=== PATIENT | female | born 1955 | race Caucasian/White ===

== ENCOUNTER 2017-02-05 16:39 | Observation (INO) | payer BC, MEDICAID ==
[2017-02-05] MEDS ORDERED: Sodium Chloride 0.9% 1,000 ML IV ONE (17:09)
[2017-02-05] MEDS ORDERED: Ondansetron 4 MG/2 ML SDV IVPUSH ONE (17:09)
--- NOTE | 2017-02-05 17:14 | EDM.PDOC ---
ED HPI GENERAL MEDICAL PROBLEM - General Chief Complaint: Gastrointestinal Problem Stated Complaint: VOMITING Time Seen by Provider: 02/05/17 16:55 Source of Information: Reports: Patient, Family History Limitations: Reports: No Limitations - History of Present Illness INITIAL COMMENTS - FREE TEXT/NARRATIVE: 62-year-old female undergoing chemotherapy for a cerebral tumor, received the medication on Sunday and today is very ill, nausea and vomiting all day long and unresponsive to the antiemetic medications. She has a slight headache but no abdominal pain, no shortness of breath or fever. She had emesis so many times and so violently that she has developed facial petechiae around her eyes. She also tends to get low platelets from the chemotherapy and it has not been checked in the last 3 weeks. Onset: Sudden (Nausea and vomiting started rather suddenly after breakfast this morning) Severity: Moderate Associated Symptoms: Reports: Nausea/Vomiting. 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 below) (Has tried oral Compazine and oral Zofran) Head Pain Score (Numeric/FACES): 4 - Related Data Allergies Allergy/AdvReac Type Severity Reaction Status Date / Time chlorpheniramine Allergy Cannot Verified 02/05/17 18:25 Remember erythromycin base Allergy Cannot Verified 02/05/17 18:25 [Erythromycin Base] Remember Penicillins Allergy Cannot Verified 02/05/17 18:25 Remember Home Meds: Home Meds Calcium Carb/Vitamin D3/Vit K1 [Viactiv Soft Chew] 1 tab PO BID 06/14/15 [ History] Multivitamins 1 tab PO DAILY 06/14/15 [History] Ondansetron [Zofran] 8 mg PO Q8H PRN 06/14/15 [History] Prochlorperazine Maleate [Compazine] 10 mg PO Q6H PRN 06/14/15 [History] *Avastin 02/05/17 [History] *Naproxen 1 tab PO BID 02/05/17 [History] Acetaminophen/Diphenhydramine [Tylenol Pm Ex-Strength Caplet] 1 tab PO BEDTIME 02/05/17 [History] Past Medical History HEENT History: Reports: Impaired Vision 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: , Prolapsed Uterus Musculoskeletal History: Reports: Fracture Other Musculoskeletal History: left shoulder torn rotator cuff Neurological History: Reports: Seizure, Other (See Below) Other Neuro History: brain tumor, "mini seizures?" tingling drooping face - effects from tumor Hematologic History: Reports: Other (See Below) Other Hematologic History: low platlet count due to chemo Immunologic History: Reports: Immunosuppression Oncologic (Cancer) History: Reports: Brain - Infectious Disease History Infectious Disease History: Reports: Chicken Pox - Past Surgical History GI Surgical History: Reports: Colonoscopy Female Surgical History: Reports: Hysterectomy Neurological Surgical History: Reports: Other (See Below) Musculoskeletal Surgical History: Reports: Other (See Below) Social & Family History - Tobacco Use Smoking Status *Q: Unknown Ever Smoked Second Hand Smoke Exposure: No - Recreational Drug Use Recreational Drug Use: No ED ROS GENERAL - Review of Systems Review Of Systems: See Below Constitutional: Reports: Malaise, Weakness. Denies: Fever, Chills HEENT: Reports: Other (Periorbital petechia). Denies: Eye Pain Respiratory: Denies: Shortness of Breath Cardiovascular: Denies: Chest Pain GI/Abdominal: Reports: Nausea, Vomiting. Denies: Abdominal Pain, Diarrhea : Reports: Other (History of a high creatinine, no urinary physical symptoms) Skin: Reports: Pallor, Other (Periorbital petechia) Neurological: Reports: Headache Psychiatric: Reports: No Symptoms ED EXAM, GI/ABD - Physical Exam Exam: See Below Exam Limited By: No Limitations General Appearance: Alert, No Apparent Distress (Patient looks uncomfortable but not in any acute distress) Eyes: Bilateral: Periorbital Swelling (Slight periorbital edema and petechiae are present) Head: Facial Swelling (A small amount of puffiness is present) Respiratory/Chest: No Respiratory Distress Cardiovascular: Regular Rate, Rhythm GI/Abdominal Exam: Normal Bowel Sounds, Soft, Other (No focal tenderness or guarding is present) Neurological: Alert, Oriented Psychiatric: Normal Affect, Normal Mood Course - Vital Signs Last Recorded V/S: Last Vital Signs Temp 98.2 F 02/06/17 07:00 Pulse 75 02/06/17 07:00 Resp 18 02/06/17 07:00 BP 129/64 02/06/17 07:00 Pulse Ox 98 02/06/17 07:00 - Orders/Labs/Meds Labs: Laboratory Tests 02/05/17 02/05/17 Range/Units 17:22 17:22 WBC 7.8 (4.5-11.0) K/uL RBC 3.80 (3.30-5.50) M/uL Hgb 12.8 (12.0-15.0) g/dL Hct 36.7 (36.0-48.0) % MCV 97 (80-98) fL MCH 34 H (27-31) pg MCHC 35 (32-36) % Plt Count 106 L (150-400) K/uL Neut % (Auto) 86 H (36-66) % Lymph % (Auto) 7 L (24-44) % Winn % (Auto) 7 H (2-6) % Eos % (Auto) 0 L (2-4) % Baso % (Auto) 0 (0-1) % Sodium 135 L (140-148) mmol/L Potassium 4.8 (3.6-5.2) mmol/L Chloride 100 (100-108) mmol/L Carbon Dioxide 27 (21-32) mmol/L Anion Gap 12.8 (5.0-14.0) mmol/L BUN 19 H (7-18) mg/dL Creatinine 0.8 (0.6-1.0) mg/dL Est Cr Clr Drug Dosing 74.24 mL/min Estimated GFR (MDRD) > 60 (>60) Glucose 122 H (74-106) mg/dL Calcium 9.1 (8.5-10.1) mg/dL Total Bilirubin 0.6 (0.2-1.0) mg/dL AST 42 H D (15-37) U/L ALT 48 (12-78) U/L Alkaline Phosphatase 58 (46-116) U/L Total Protein 6.1 L (6.4-8.2) g/dL Albumin 3.8 (3.4-5.0) g/dL Globulin 2.3 (2.3-3.5) g/dL Albumin/Globulin Ratio 1.7 (1.2-2.2) Amylase 73 (25-115) U/L Lipase 97 (73-393) U/L Meds: Medications Discontinued Medications Generic Name Dose Route Start Last Admin Trade Name Freq PRN Reason Stop Dose Admin Acetaminophen 650 mg 02/05/17 19:07 Tylenol PO Q4H PRN Pain (Mild 1-3)/fever Acetaminophen 500 mg 02/05/17 21:00 02/05/17 20:42 Tylenol Extra Strength PO 500 mg BEDTIME EMILY Administration Diphenhydramine HCl 25 mg 02/05/17 21:00 02/05/17 20:42 Benadryl PO 25 mg BEDTIME EMILY Administration Sodium Chloride 1,000 mls @ 999 mls/hr 02/05/17 17:09 02/05/17 17:30 Normal Saline IV 02/05/17 18:09 999 mls/hr ONETIME ONE Administration Sodium Chloride 1,000 mls @ 100 mls/hr 02/05/17 18:30 02/06/17 05:18 Normal Saline IV 100 mls/hr ASDIRECTED EMILY Administration Lorazepam 0.5 mg 02/05/17 19:07 02/05/17 19:26 Ativan IVPUSH 0.5 mg Q4H PRN Administration Nausea/Vomiting Ondansetron HCl 4 mg 02/05/17 17:09 02/05/17 17:30 Zofran IVPUSH 02/05/17 17:10 4 mg ONETIME ONE Administration Ondansetron HCl 4 mg 02/05/17 19:07 Zofran Odt PO Q6H PRN Nausea able to take PO Ondansetron HCl 4 mg 02/05/17 19:07 Zofran IV Q6H PRN Nausea/Vomiting Apap 500mg/ 0 each 02/06/17 21:00 Diphenhydramine 25mg PO (Ptom) BEDTIME EMILY Prochlorperazine Maleate 10 mg 02/05/17 19:07 Compazine PO Q6H PRN Nausea/Vomiting - Re-Assessments/Exams Free Text/Narrative Re-Assessment/Exam: 02/05/17 17:14 An IV was started and 1000 mL bolus of normal saline was given. 4 mg of IV Zofran was given as well. CBC, CMP, amylase and lipase were obtained. 02/05/17 17:53 Labs returned very reassuring. Platelets were at 106,000, white count, hemoglobin, electrolytes and renal function were also reassuring. Amylase and lipase were normal. Dr. Tyler, the hospitalist service was asked to consult to admit patient for symptom control and hydration. Departure - Departure Time of Disposition: 18:55 Disposition: Admitted As Inpatient 64 Condition: Fair Clinical Impression: Vomiting - Discharge Information
--- NOTE | 2017-02-05 18:39 | PCM.HP ---
H&P History of Present Illness - General Date of Service: 02/05/17 Admit Problem/Dx: Admission Diagnosis/Problem Admission Diagnosis/Problem Nausea and vomiting Source of Information: Patient, Family, Provider History Limitations: Reports: No Limitations - History of Present Illness Initial Comments - Free Text/Narative: Elisabeth presents to the emergency room with 12 hours of nausea and vomiting. She last received chemotherapy on Sunday, 3 days ago. She felt well other than some fatigue for the first couple of days before developing nausea and vomiting this morning. She has had multiple episodes of vomiting and these episodes have been violent. She has been unable to keep anything down during the course of the day. When she takes any liquid she vomits it right back up. She has not had any fevers and has not had any abdominal pain. She reports fatigue that is worse than baseline over the past few days. She has not had any sick contacts. She has not consumed any foods outside of her usual diet. No complaints of shortness of breath. She did note some petechiae on her cheeks after the violent episodes of vomiting today. Workup in the emergency room has been reassuring with only mild thrombocytopenia noted on labs. She will be admitted for hydration and additional symptom management. Head Pain Score (Numeric/FACES): 4 - Related Data Allergies/Adverse Reactions: Allergies Allergy/AdvReac Type Severity Reaction Status Date / Time chlorpheniramine Allergy Cannot Verified 02/05/17 18:25 Remember diphenhydramine Allergy Cannot Verified 02/05/17 18:25 Remember erythromycin base Allergy Cannot Verified 02/05/17 18:25 [Erythromycin Base] Remember Penicillins Allergy Cannot Verified 02/05/17 18:25 Remember Home Medications: Home Meds Calcium Carb/Vitamin D3/Vit K1 [Viactiv Soft Chew Tablet] 1 tab PO BID 06/14/15 [History] Memantine [Namenda] 10 mg PO BID 06/14/15 [History] Multivitamins 1 tab PO DAILY 06/14/15 [History] Ondansetron [Zofran] 8 mg PO Q8H PRN 06/14/15 [History] Prochlorperazine Maleate [Compazine] 10 mg PO Q6H PRN 06/14/15 [History] Sulfamethoxazole/Trimethoprim [Bactrim 400-80 MG] 1 tab PO DAILY 06/14/15 [ History] Temozolomide [Temodar] 280 mg PO BEDTIME 06/14/15 [History] Past Medical History HEENT History: Reports: Impaired Vision 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: , Prolapsed Uterus Musculoskeletal History: Reports: Fracture Other Musculoskeletal History: left shoulder torn rotator cuff Neurological History: Reports: Seizure, Other (See Below) Other Neuro History: brain tumor, "mini seizures?" tingling drooping face - effects from tumor Hematologic History: Reports: Other (See Below) Other Hematologic History: low platlet count due to chemo Immunologic History: Reports: Immunosuppression Oncologic (Cancer) History: Reports: Brain - Infectious Disease History Infectious Disease History: Reports: Chicken Pox - Past Surgical History GI Surgical History: Reports: Colonoscopy Female Surgical History: Reports: Hysterectomy Neurological Surgical History: Reports: Other (See Below) Musculoskeletal Surgical History: Reports: Other (See Below) Social & Family History - Tobacco Use Smoking Status *Q: Unknown Ever Smoked Second Hand Smoke Exposure: No - Recreational Drug Use Recreational Drug Use: No H&P Review of Systems - Review of Systems: Review Of Systems: See Below Free Text/Narrative: A complete 12 point review of systems was obtained. Pertinent positives and negatives are noted in the history of present illness. All other systems were reviewed and were negative except as noted. Exam - Exam Exam: See Below - Vital Signs Vital Signs: Last Vital Signs Temp 35.7 C 02/05/17 16:52 Pulse 85 02/05/17 16:52 Resp 16 02/05/17 16:52 BP 171/76 H 02/05/17 17:17 Pulse Ox 96 02/05/17 17:17 Weight: 66.4 kg - Exam Quality Assessment: No: Supplemental Oxygen General: Alert, Oriented, Cooperative. No: Mild Distress HEENT: Conjunctiva Clear. No: Mucosa Moist & [place] (dry), Scleral Icterus Neck: Supple, Trachea Midline. No: Lymphadenopathy Lungs: Clear to Auscultation, Normal Respiratory Effort Cardiovascular: Regular Rate, Regular Rhythm GI/Abdominal Exam: Normal Bowel Sounds, Soft, Non-Tender, No Distention Extremities: No Pedal Edema. No: Increased Warmth Skin: Warm, Dry, Petechia (cheeks and around eyes) Neuro Extensive - Mental Status: Alert, Oriented x3, Nl Response to Commands Neuro Extensive - Motor, Sensory, Reflexes: CN II-XII Intact. No: Dysarthria, Abnormal Motor Psychiatric: Alert, Normal Affect - Patient Data Lab Results Last 24 hrs: Laboratory Results - last 24 hr 02/05/17 02/05/17 Range/Units 17:22 17:22 WBC 7.8 (4.5-11.0) K/uL RBC 3.80 (3.30-5.50) M/uL Hgb 12.8 (12.0-15.0) g/dL Hct 36.7 (36.0-48.0) % MCV 97 (80-98) fL MCH 34 H (27-31) pg MCHC 35 (32-36) % Plt Count 106 L (150-400) K/uL Neut % (Auto) 86 H (36-66) % Lymph % (Auto) 7 L (24-44) % Morton % (Auto) 7 H (2-6) % Eos % (Auto) 0 L (2-4) % Baso % (Auto) 0 (0-1) % Sodium 135 L (140-148) mmol/L Potassium 4.8 (3.6-5.2) mmol/L Chloride 100 (100-108) mmol/L Carbon Dioxide 27 (21-32) mmol/L Anion Gap 12.8 (5.0-14.0) mmol/L BUN 19 H (7-18) mg/dL Creatinine 0.8 (0.6-1.0) mg/dL Est Cr Clr Drug Dosing 74.24 mL/min Estimated GFR (MDRD) > 60 (>60) Glucose 122 H (74-106) mg/dL Calcium 9.1 (8.5-10.1) mg/dL Total Bilirubin 0.6 (0.2-1.0) mg/dL AST 42 H D (15-37) U/L ALT 48 (12-78) U/L Alkaline Phosphatase 58 (46-116) U/L Total Protein 6.1 L (6.4-8.2) g/dL Albumin 3.8 (3.4-5.0) g/dL Globulin 2.3 (2.3-3.5) g/dL Albumin/Globulin Ratio 1.7 (1.2-2.2) Amylase 73 (25-115) U/L Lipase 97 (73-393) U/L Result Diagrams: 02/05/17 17:22 02/05/17 17:22 *Q Meaningful Use (ADM) - VTE *Q VTE Criteria *Q: - VTE Risk Assess *Q Each Risk Factor Represents 1 Point: None Total Score 1 Point Risk Factors: 0 Each Risk Factor Represents 2 Points: Age 60 - 74 Years, Malignancy (present or previous) Total Score 2 Point Risk Factors: 4 Each Risk Factor Represents 3 Points: None Total Score 3 Point Risk Factors: 0 Each Risk Factor Represents 5 Points: None Total Score 5 Point Risk Factors: 0 Venous Thromboembolism Risk Factor Score *Q: 4 - Stroke *Q Stroke Criteria *Q: - AMI *Q AMI Criteria *Q: - Problem List (1) Nausea and vomiting SNOMED Code(s): 14084548 ICD Code: R11.2 - NAUSEA WITH VOMITING, UNSPECIFIED Status: Acute Current Visit: Yes Qualifiers: Vomiting type: unspecified Vomiting Intractability: non-intractable Qualified Code(s): R11.2 - Nausea with vomiting, unspecified (2) Glioblastoma SNOMED Code(s): 09224798670008 ICD Code: C71.9 - MALIGNANT NEOPLASM OF BRAIN, UNSPECIFIED Status: Acute Current Visit: Yes Problem List Initiated/Reviewed/Updated: Yes Orders Last 24hrs: Active Orders 24 hr Category Date Time Status Patient Status Manage Transfer [TRANSFER] Routine ADT 02/05/17 18:19 Ordered Sodium Chloride 0.9% [Normal Saline] 1,000 ml Med 02/05/17 18:30 Active IV ASDIRECTED Resuscitation Status Routine Resus Stat 02/05/17 18:20 Ordered Medication Orders Sodium Chloride (Normal Saline) 1,000 mls @ 100 mls/hr IV ASDIRECTED EMILY Assessment/Plan Comment:: ASSESSMENT AND PLAN - Nausea vomiting - likely side effect from recent chemotherapy. Had similar but not quite as intense symptoms after last round of chemotherapy 2 weeks ago. No fever and no sick contacts. Labs reassuring but obvious evidence for dehydration on examination. Unable to keep anything down and not safe for outpatient management. -IV fluids overnight -Symptomatic management as needed -Liquids as tolerated Glioblastoma - currently receiving IV chemotherapy every 2 weeks. Has seemed to be more intolerant each of the last 2 rounds. -Outpatient follow-up Maintenance issues - - DVT prophylaxis - ambulatory - GI prophylaxis - not indicated - Nutrition - full liquids as tolerated - Gabriel catheter - not indicated CODE STATUS - DNR/DNI Admission justification - patient will be referred to observation status for hydration and symptomatic management Disposition - anticipate discharge to home tomorrow Primary care physician - Mustapha Tyler M.D.
[2017-02-05] MEDS ORDERED: Ondansetron 4 MG Tab.DIS PO PRN (19:07)
[2017-02-05] MEDS ORDERED: Ondansetron 4 MG/2 ML SDV IV PRN (19:07)
[2017-02-05] MEDS ORDERED: LORazepam 2 MG/ML SDV IVPUSH PRN (19:07)
[2017-02-05] MEDS ORDERED: PROCHLORPERAZINE 10 MG PO PRN (19:07)
[2017-02-05] MEDS ORDERED: Acetaminophen 325 MG Tab PO PRN (19:07)
[2017-02-05] MEDS: Sodium Chloride 0.9% 1,000 ML IV SCH (19:26)
[2017-02-05] MEDS ORDERED: diphenhydrAMINE 25 MG Cap PO SCH (21:00)
[2017-02-05] MEDS ORDERED: Acetaminophen 500 MG Tab PO SCH (21:00)
[2017-02-06] MEDS: Sodium Chloride 0.9% 1,000 ML IV SCH (05:18)
[2017-02-06 07:34] VITALS: BP 129/64
--- NOTE | 2017-02-06 10:36 | PCM.DCSUM1 ---
Discharge Summary - Hospital Course Brief History: 62-year-old female with cerebral glioblastoma on chemotherapy who presented with intractable nausea and vomiting and was admitted for hydration and symptom management. - Discharge Data Discharge Date: 02/06/17 Discharge Disposition: Home, Self-Care 01 Condition: Good - Discharge Diagnosis/Problem(s) (1) Nausea and vomiting SNOMED Code(s): 78786580 ICD Code: R11.2 - NAUSEA WITH VOMITING, UNSPECIFIED Status: Acute Qualifiers: Vomiting type: unspecified Vomiting Intractability: non-intractable Qualified Code(s): R11.2 - Nausea with vomiting, unspecified (2) Glioblastoma SNOMED Code(s): 99754563440702 ICD Code: C71.9 - MALIGNANT NEOPLASM OF BRAIN, UNSPECIFIED Status: Chronic - Patient Summary/Data Hospital Course: Elisabeth presented to the emergency room with nausea and vomiting that were intractable at home. Workup in the emergency room reassuring but given her dehydration and severity of symptoms she was admitted for additional management. Overnight her nausea essentially resolved and there were no episodes of vomiting. She feels much better this morning after hydration overnight. Has been no abdominal pain and she has not had any fevers. She tolerated breakfast well with no nausea or vomiting. She feels safe to go home at this point. We did review the use of anti-nausea medications including Compazine and ondansetron. She has some of both of these available at home. Hopefully she will not need them after hydration and symptom management during this hospital stay. She will be following up with her oncology providers as scheduled. - Patient Instructions Diet: Regular Diet as Tolerated Activity: As Tolerated Showering/Bathing: May Shower Notify Provider of: Fever, Increased Pain, Nausea and/or Vomiting Other/Special Instructions: 1. You were in the hospital for management of nausea and vomiting that resulted from your recent chemotherapy treatment. Your symptoms have improved with IV fluid hydration and medications to help manage the nausea. If you have difficulty with nausea at home you can alternate your nausea medications including Zofran and Compazine. It is safe to take these medications every 6 hours as needed and you may overlap every 3 hours if urine nausea is severe (i.e. take Zofran, weight 3 hours and then take Compazine and if you still have nausea you can take Zofran again after 3 more hours - 6 hours after the first dose). 2. Please follow-up as scheduled with the oncology service. 3. Seek medical attention if you develop fever greater than 101, you have persistent vomiting that leads to dehydration or if you develop severe abdominal pain or diarrhea. - Discharge Plan Home Medications: Home Meds Calcium Carb/Vitamin D3/Vit K1 [Viactiv Soft Chew] 1 tab PO BID 06/14/15 [ History] Multivitamins 1 tab PO DAILY 06/14/15 [History] Ondansetron [Zofran] 8 mg PO Q8H PRN 06/14/15 [History] Prochlorperazine Maleate [Compazine] 10 mg PO Q6H PRN 06/14/15 [History] *Avastin 02/05/17 [History] *Naproxen 1 tab PO BID 02/05/17 [History] Acetaminophen/Diphenhydramine [Tylenol Pm Ex-Strength Caplet] 1 tab PO BEDTIME 02/05/17 [History] Patient Handouts: Nausea, Adult Referrals: Mustapha Sánchez MD [Primary Care Provider] - (follow-up as needed after the hospital stay) - Discharge Summary/Plan Comment DC Time >30 min.: No (25) - Patient Data Vitals - Most Recent: Last Vital Signs Temp 36.8 C 02/06/17 07:00 Pulse 75 02/06/17 07:00 Resp 18 02/06/17 07:00 BP 129/64 02/06/17 07:00 Pulse Ox 98 02/06/17 07:00 Weight - Most Recent: 66.4 kg I&O - Last 24 hours: Intake & Output 02/05/17 02/06/17 02/06/17 22:59 06:59 14:59 Intake Total 992 360 Output Total 300 1200 Balance -300 -208 360 Med Orders - Current: Current Medications Acetaminophen (Tylenol) 650 mg PO Q4H PRN PRN Reason: Pain (Mild 1-3)/fever Sodium Chloride (Normal Saline) 1,000 mls @ 100 mls/hr IV ASDIRECTED EMILY Last Admin: 02/06/17 05:18 Dose: 100 mls/hr Lorazepam (Ativan) 0.5 mg IVPUSH Q4H PRN PRN Reason: Nausea/Vomiting Last Admin: 02/05/17 19:26 Dose: 0.5 mg Ondansetron HCl (Zofran Odt) 4 mg PO Q6H PRN PRN Reason: Nausea able to take PO Ondansetron HCl (Zofran) 4 mg IV Q6H PRN PRN Reason: Nausea/Vomiting Apap 500mg/Diphenhydramine 25mg (Ptom) 0 each PO BEDTIME EMILY Prochlorperazine Maleate (Compazine) 10 mg PO Q6H PRN PRN Reason: Nausea/Vomiting Discontinued Medications Acetaminophen (Tylenol Extra Strength) 500 mg PO BEDTIME [facility] Last Admin: 02/05/17 20:42 Dose: 500 mg Diphenhydramine HCl (Benadryl) 25 mg PO BEDTIME EMLIY Last Admin: 02/05/17 20:42 Dose: 25 mg Sodium Chloride (Normal Saline) 1,000 mls @ 999 mls/hr IV ONETIME ONE Stop: 02/05/17 18:09 Last Admin: 02/05/17 17:30 Dose: 999 mls/hr Ondansetron HCl (Zofran) 4 mg IVPUSH ONETIME ONE Stop: 02/05/17 17:10 Last Admin: 02/05/17 17:30 Dose: 4 mg - Exam Quality Assessment: Denies: Supplemental Oxygen General: Reports: Alert, Oriented, Cooperative, No Acute Distress Lungs: Reports: Normal Respiratory Effort GI/Abdominal Exam: Soft, No Distention *Q Meaningful Use (DIS) - VTE *Q VTE Criteria *Q: - Stroke *Q Stroke Criteria *Q: - AMI *Q AMI Criteria *Q:
[2017-02-06] MEDS ORDERED: APAP PO SCH (21:00)
[2017-02-06] MEDS ORDERED: [UNRECOGNIZED DRUG - OTHER] PO SCH (21:00)
== END 2017-02-06 11:44 | disposition home or self-care (01) ==
LOC: JP.ED 16:39 → JP.MS 18:19
PROVIDERS: ADMIT Internal Medicine; ATTEND Internal Medicine
DX: R11.2 Nausea with vomiting, unspecified (principal); C71.0 Malignant neoplasm of cerebrum, except lobes and ventricles; Z88.0 Allergy status to penicillin; Z88.1 Allergy status to other antibiotic agents; Z88.8 Allergy status to other drugs, medicaments and biological substances; Z79.899 Other long term (current) drug therapy
CPT/HCPCS: 36415; 80053; 82150; 83690; 85025; 96361; 96374; 96375; 99284; 99285; A9270; G0378; J2060; J2405; J7040; 99217; 99219; J7030